=== PATIENT | male | born 1970 | race American Indian/Alaskan Native ===

== ENCOUNTER 2019-07-30 22:45 | Emergency (ER) | payer SELFPAY ==
[~2019-07-30 22:45] MED LIST: D5W 100 ML IVPB IV ONE; DOPamine/D5W 800 MG/250 ML DRIP IV ONE; EPINEPHrine 1:10,000 1 MG/10 ML SYRINGE ONE
--- NOTE | 2019-07-30 23:04 | Emergency Department Report ---
ED CPR HPI - General Stated Complaint: CARDIAC ARREST Time Seen by Provider: 07/30/19 22:45 Source: EMS Mode of arrival: Stretcher Limitations: Altered Mental Status, Physical Limitation - History of Present Illness Initial Comments: Patient is a 49-year-old male that presents emergency room with cardiac arrest. Patient brought in by EMS. Report received from EMS. EMS states that the initial findings in the field were agonal breathing and a good pulse, no blood pressure. Patient then went asystole and CPR was initiated. IV was established by EMS. EMS gave the patient epinephrine. Patient then went into V. fib and was shocked and given amiodarone. Just prior to arrival EMS had spontaneous return of circulation. Initial evaluation done and patient did not have a pulse. CPR initiated. MD Complaint: found unresponsive -: unknown Place: home Bystander CPR Performed: No AED Applied by Bystander/Continuing Education Instructor: No Initial Findings in the Field: unresponsive, agonal, palpable pulse, no BP ROSC in the Field: Yes Treatments Prior to Arrival: intubation, BMV, chest compressions, defribrillated shocks # (2), epinephrine mgs # - Related Data Allergies Allergy/AdvReac Type Severity Reaction Status Date / Time morphine Allergy Unknown Verified 07/30/19 23:32 ED Review of Systems ROS: Stated complaint: CARDIAC ARREST Other details as noted in HPI Comment: Unobtainable due to pts medical conditions ED Past Medical Hx - Past Medical History Previous Medical History?: Yes Additional medical history: Lung cancer. - Surgical History Past Surgical History?: Yes Additional Surgical History: Pleural drain to the right chest - Family History Family history: no significant - Social History Smoking Status: Unknown if ever smoked Substance Use Type: Other ED Physical Exam - General Limitations: Altered Mental Status, Physical Limitation General appearance: obtunded - Head Head exam: Present: atraumatic, normocephalic - Eye Eye exam: Present: other (Pupils are fixed and dilated.) - ENT ENT exam: Present: other (ET tube in place.) - Neck Neck exam: Present: normal inspection - Respiratory Respiratory exam: Present: other (Bilateral breath sounds noted with the ET tube) - Cardiovascular Cardiovascular Exam: Present: other (No pulse noted.) - GI/Abdominal GI/Abdominal exam: Present: soft - Rectal Rectal exam: Present: deferred - Extremities Exam Extremities exam: Present: normal inspection - Skin Skin exam: Present: warm, dry, intact. Absent: rash ED Course - Reevaluation(s) Reevaluation #1: Patient arrived by EMS. Patient was transferred from the EMS stretcher to our bed. No pulse noted. CPR initiated. 07/30/19 [id number] Reevaluation #2: Resuscitation efforts terminated due to No signs of life noted. No cardiac motion noted. No pulse noted. Family meeting will be done once family arrives. 07/30/19 22:53 Reevaluation #3: Family meeting done. Family support given. 07/30/19 23:29 ED Medical Decision Making - Medical Decision Making Patient is a 49-year-old male that presents emergency room with cardiac arrest. Patient's code ran in accordance with ACLS guidelines. Patient brought in by EMS and report received from EMS. Resuscitation efforts were terminated due to no signs of life. No cardiac motion noted. No pulse. See code note. Family support given during the family meeting. - Differential Diagnosis Cardiac arrest. Critical Care Time: Yes Critical care time in (mins) excluding proc time.: 35 Critical care attestation.: If time is entered above; I have spent that time in minutes in the direct care of this critically ill patient, excluding procedure time. Critical Care Time: 35 minutes ED Disposition Clinical Impression: Cardiac arrest Disposition: DC-20 Is pt being admited?: No Does the pt Need Aspirin: No Condition: Undetermined Time of Disposition: 00:01
== END 2019-07-31 01:40 ==
LOC: ED 22:45
DX: I46.9 Cardiac arrest, cause unspecified (principal); Z85.118 Personal history of other malignant neoplasm of bronchus and lung; Z98.890 Other specified postprocedural states; Z88.5 Allergy status to narcotic agent
CPT/HCPCS: 31500; 92950; 99285; J0171; J1265